=== PATIENT | male | born 1985 | race Caucasian/White ===

== ENCOUNTER 2021-04-30 09:22 | Emergency (ER) | payer MEDICAID, OTHER ==
[~2021-04-30] VITALS: Ht 177.8 cm; Wt 108.9 kg
[2021-04-30] MEDS ORDERED: PENI500T PO (10:09)
[2021-04-30] MEDS ORDERED: HYDR-4209 PO (10:09)
--- NOTE | 2021-04-30 10:30 | NUR ---
Patient discharged to home in stable condition. Written and verbal after care instructions given. Patient verbalizes understanding of instructions. Stressed follow up or return to ER for worsening s/s.
[2021-04-30 11:19] VITALS: BP 145/80
== END 2021-04-30 10:30 | disposition home or self-care (01) ==
LOC: ER 09:22
DX: K02.9 Dental caries, unspecified (principal); K05.10 Chronic gingivitis, plaque induced; E66.9 Obesity, unspecified; Z68.34 Body mass index [BMI] 34.0-34.9, adult
CPT/HCPCS: A4663

== ENCOUNTER 2024-01-14 18:26 | Inpatient (IN) | payer OTHER ==
[~2024-01-14] VITALS: Ht 177.8 cm; Wt 89.6 kg
[~2024-01-14 18:26] MED LIST: HYDR-4209 PO; PENI500T PO
[2024-01-14] MEDS ORDERED: ONDANSETRON 4 MG/2 ML VIAL ONE (18:48)
[2024-01-14] MEDS ORDERED: MAG HYDROX/AL HYDROX/SIMETH 30 ML LIQUID UDC ONE (18:48)
[2024-01-14] MEDS ORDERED: DICYCLOMINE HCL LIQ 10 MG/5 ML UDC ONE ×2 (18:48→18:59)
[2024-01-14] MEDS ORDERED: LIDOCAINE VISCUS 2% 15 ML UDC ONE (18:48)
[2024-01-14] MEDS: MAG HYDROX/AL HYDROX/SIMETH 30 ML LIQUID UDC PO ONE (18:57)
[2024-01-14] MEDS: IV NORMAL SALINE 1000 ML BAG IV ONE (18:57)
[2024-01-14] MEDS: LIDOCAINE VISCUS 2% 15 ML UDC MM ONE (18:57)
[2024-01-14] MEDS: DICYCLOMINE HCL LIQ 10 MG/5 ML UDC PO ONE (18:57)
[2024-01-14] MEDS: ONDANSETRON 4 MG/2 ML VIAL IV ONE (18:57)
[2024-01-14] MEDS ORDERED: HYDROMORPHONE 1 MG/1 ML DISP.SYRIN ONE ×2 (19:17→23:10)
[2024-01-14] MEDS: HYDROMORPHONE 1 MG/1 ML DISP.SYRIN IV ONE ×2 (19:25→23:10)
[2024-01-14 19:50] LABS: BASOPHILS # (AUTO) 0.1 K/UL (0.0-0.2); BASOPHILS % (AUTO) 0.9 % (0.0-2.0); EOSINOPHILS # (AUTO) 0.1 K/uL (0.0-0.7); EOSINOPHILS % (AUTO) 0.6 % (0.0-7.0); HEMATOCRIT 41.7 % (36.7-47.1); HEMOGLOBIN 14.3 g/dL (12.5-16.3); LYMPHOCYTES # (AUTO) 1.4 K/uL (0.8-4.8); LYMPHOCYTES % (AUTO) 8.7 % (20.5-51.5); MEAN CORPUSCULAR HEMOGLOBIN 28.6 uug (23.8-33.4); MEAN CORPUSCULAR HGB CONC 34 g/dL (32.5-36.3); MEAN CORPUSCULAR VOLUME 83.5 fL (73.0-96.2); MONOCYTES # (AUTO) 1.2 K/uL (0.1-1.30); MONOCYTES % (AUTO) 7.8 % (0.0-11.0); NEUTROPHILS # (AUTO) 13.1 K/uL (1.8-8.9); PLATELET COUNT (AUTO) 392 K/uL (152-348); RED CELL DISTRIBUTION WIDTH 13.9 % (12.1-16.2); WHITE BLOOD COUNT (AUTO) 15.9 K/uL (3.6-10.2)
[2024-01-14 19:52] LABS: DIFFERENTIAL COMMENT 1
[2024-01-14] MEDS ORDERED: IOHEXOL 300MG/ML 100 ML INFUS..BTL ONE (19:52)
[2024-01-14] MEDS ORDERED: IV NORMAL SALINE 250 ML IV ONE (19:52)
[2024-01-14] MEDS ORDERED: SWABABLE VALVE TRANSFER SET EA MC ONE (19:52)
[2024-01-14 20:01] LABS: ALANINE AMINOTRANSFERASE 23 U/L (16-63); ALBUMIN 3.5 g/dL (3.4-5.0); ALKALINE PHOSPHATASE 108 U/L (50-136); ASPARTATE AMINOTRANSFERASE 8 U/L (15-37); BILIRUBIN,TOTAL 0.6 mg/dL (0.2-1.0); CALCIUM 8.7 mg/dL (8.5-10.1); CARBON DIOXIDE 27 mmol/L (21-32); CHLORIDE 101 mmol/L (98-107); CREATININE 0.9 mg/dL (0.6-1.3); GLUCOSE 98 mg/dL (74-106); LIPASE 46 U/L (16-77); POTASSIUM 3.5 mmol/L (3.5-5.1); SODIUM SERUM 136 mmol/L (136-145); TOTAL PROTEIN, SERUM 7.8 g/dL (6.4-8.2); UREA NITROGEN, BLOOD 15 mg/dL (7-18)
[2024-01-14 20:05] LABS: BILIRUBIN,DIRECT < 0.1 mg/dL (0.0-0.2)
[2024-01-14] MEDS ORDERED: PIPERACILLIN/TAZOBACTAM/D5W 50 ML IV ONE (21:37)
[2024-01-14] MEDS: PIPERACILLIN SODIUM/TAZOBACTAM 3.375 G in IV DEXTROSE 5% 50 ML IV ONE (21:37)
[2024-01-15] MEDS: HYDROMORPHONE 1 MG/1 ML DISP.SYRIN IV ONE (02:41)
[2024-01-15] MEDS: ONDANSETRON 4 MG/2 ML VIAL IV ONE (02:41)
[2024-01-15] MEDS ORDERED: ONDANSETRON 4 MG/2 ML VIAL ONE (02:45)
[2024-01-15] MEDS ORDERED: HYDROMORPHONE 1 MG/1 ML DISP.SYRIN ONE (02:46)
[2024-01-15 04:35] VITALS: BP 144/94; TEMP 98.6; O2SAT 97
[2024-01-15] MEDS ORDERED: PIPERACILLIN/TAZOBACTAM/D5W 50 ML IV ONE (04:37)
[2024-01-15] MEDS: HYDROMORPHONE 1 MG/1 ML DISP.SYRIN IV PRN (04:40)
[2024-01-15] MEDS: IV D5 1/2 NS 1000 ML 1,000 ML IV PRN (04:48)
[2024-01-15] MEDS: PIPERACILLIN SODIUM/TAZOBACTAM 3.375 G in IV DEXTROSE 5% 50 ML IV ONE (05:56)
[2024-01-15] MEDS ORDERED: PIPERACILLIN SODIUM/TAZOBACTAM 3.375 G in IV DEXTROSE 5% 50 ML IV SCH (06:00)
[2024-01-15] MEDS ORDERED: ONDANSETRON 4 MG/2 ML VIAL IV PRN (08:45)
[2024-01-15] MEDS: PANTOPRAZOLE SODIUM 40 MG VIAL IV SCH (10:03)
[2024-01-15 10:59] VITALS: BP 132/84; TEMP 98; O2SAT 95
[2024-01-15] MEDS: PIPERACILLIN SODIUM/TAZOBACTAM 3.375 G in IV DEXTROSE 5% 100 ML IV SCH (14:18)
[2024-01-15 15:11] VITALS: BP 131/89; TEMP 97.6; O2SAT 99
[2024-01-15] MEDS ORDERED: BUPIVACAINE/EPI PF 0.25% 10 ML VIAL IJ ONE (18:50)
[2024-01-15] MEDS ORDERED: LIDOCAINE HCL 1% 20 ML VIAL ONE (18:50)
[2024-01-15] MEDS ORDERED: MIDAZOLAM HCL 2 MG/2 ML VIAL ONE (18:57)
[2024-01-15] MEDS ORDERED: HYDROMORPHONE 2 MG/1 ML DISP.SYRIN ONE (18:57)
[2024-01-15] MEDS ORDERED: PROPOFOL 200 MG/20 ML BOTTLE ONE (19:00)
[2024-01-15] MEDS ORDERED: ROCURONIUM BROMIDE 50 MG/5 ML VIAL ONE (19:15)
[2024-01-15] MEDS ORDERED: LIDOCAINE 4% TOPICAL 50 ML BOTTLE ONE (19:16)
[2024-01-16] VITALS: BP 144/90; TEMP 97.9; O2SAT 98
[2024-01-16] MEDS: TEMAZEPAM 7.5 MG CAPSULE PO PRN (00:33)
[2024-01-16 06:49] VITALS: BP 165/100; TEMP 98.8; O2SAT 98
[2024-01-16 07:32] LABS: BASOPHILS % (AUTO) 0.1 % (0.0-2.0); HEMATOCRIT 40.9 % (36.7-47.1); HEMOGLOBIN 14.6 g/dL (12.5-16.3); LYMPHOCYTES # (AUTO) 1.2 K/uL (0.8-4.8); LYMPHOCYTES % (AUTO) 9.9 % (20.5-51.5); MEAN CORPUSCULAR HEMOGLOBIN 29.4 uug (23.8-33.4); MEAN CORPUSCULAR HGB CONC 36 g/dL (32.5-36.3); MEAN CORPUSCULAR VOLUME 82.2 fL (73.0-96.2); MONOCYTES # (AUTO) 0.8 K/uL (0.1-1.30); MONOCYTES % (AUTO) 6.4 % (0.0-11.0); NEUTROPHILS # (AUTO) 10.1 K/uL (1.8-8.9); NEUTROPHILS % (AUTO) 83.6 % (38.5-71.5); PLATELET COUNT (AUTO) 423 K/uL (152-348); RED BLOOD CELL COUNT(AUTO) 4.98 MIL/uL (4.06-5.63); RED CELL DISTRIBUTION WIDTH 13.6 % (12.1-16.2); WHITE BLOOD COUNT (AUTO) 12.1 K/uL (3.6-10.2)
[2024-01-16 07:39] LABS: DIFFERENTIAL COMMENT 1
[2024-01-16 07:51] LABS: CALCIUM 8.7 mg/dL (8.5-10.1); CREATININE 0.9 mg/dL (0.6-1.3); POTASSIUM 3.9 mmol/L (3.5-5.1)
[2024-01-16] MEDS: AMLODIPINE 5 MG TABLET PO SCH (08:02)
[2024-01-16 12:01] VITALS: BP 141/85; TEMP 98.4; O2SAT 96
[2024-01-16 16:00] VITALS: BP 132/88; TEMP 98.4; O2SAT 98
[2024-01-16 20:00] VITALS: BP 155/88; TEMP 97.8; O2SAT 99
[2024-01-17 06:06] VITALS: BP 155/93; TEMP 98.2; O2SAT 98
[2024-01-17 07:01] LABS: BASOPHILS # (AUTO) 0.2 K/UL (0.0-0.2); BASOPHILS % (AUTO) 2.7 % (0.0-2.0); EOSINOPHILS # (AUTO) 0.3 K/uL (0.0-0.7); EOSINOPHILS % (AUTO) 3.8 % (0.0-7.0); HEMATOCRIT 44.5 % (36.7-47.1); HEMOGLOBIN 15.3 g/dL (12.5-16.3); LYMPHOCYTES # (AUTO) 0.8 K/uL (0.8-4.8); LYMPHOCYTES % (AUTO) 9.5 % (20.5-51.5); MEAN CORPUSCULAR HEMOGLOBIN 28.6 uug (23.8-33.4); MEAN CORPUSCULAR HGB CONC 34 g/dL (32.5-36.3); MEAN CORPUSCULAR VOLUME 83.3 fL (73.0-96.2); MONOCYTES # (AUTO) 0.7 K/uL (0.1-1.30); NEUTROPHILS # (AUTO) 6.8 K/uL (1.8-8.9); PLATELET COUNT (AUTO) 445 K/uL (152-348); RED BLOOD CELL COUNT(AUTO) 5.34 MIL/uL (4.06-5.63); RED CELL DISTRIBUTION WIDTH 13.9 % (12.1-16.2); WHITE BLOOD COUNT (AUTO) 8.9 K/uL (3.6-10.2)
[2024-01-17 07:11] LABS: DIFFERENTIAL COMMENT 1
[2024-01-17 07:34] LABS: CALCIUM 8.6 mg/dL (8.5-10.1); CREATININE 0.8 mg/dL (0.6-1.3); MAGNESIUM 2.1 mg/dL (1.8-2.4); PHOSPHOROUS 3.1 mg/dL (2.5-4.9); POTASSIUM 3.5 mmol/L (3.5-5.1)
[2024-01-17 11:37] VITALS: BP 161/106; TEMP 98.1; O2SAT 96
[2024-01-17 16:14] VITALS: BP 146/91; TEMP 98.4; O2SAT 99
[2024-01-17 20:13] VITALS: BP 131/84; TEMP 98.1; O2SAT 96
[2024-01-18 05:20] VITALS: BP 125/86; TEMP 98.2; O2SAT 95
[2024-01-18] MEDS: PANTOPRAZOLE SODIUM 40 MG TABLET.DR PO SCH (06:22)
[2024-01-18 07:30] LABS: BASOPHILS # (AUTO) 0.1 K/UL (0.0-0.2); BASOPHILS % (AUTO) 0.8 % (0.0-2.0); EOSINOPHILS # (AUTO) 0.3 K/uL (0.0-0.7); EOSINOPHILS % (AUTO) 3.5 % (0.0-7.0); HEMATOCRIT 41.9 % (36.7-47.1); HEMOGLOBIN 14.8 g/dL (12.5-16.3); LYMPHOCYTES # (AUTO) 2.2 K/uL (0.8-4.8); MEAN CORPUSCULAR HEMOGLOBIN 29.1 uug (23.8-33.4); MEAN CORPUSCULAR HGB CONC 35 g/dL (32.5-36.3); MEAN CORPUSCULAR VOLUME 82.5 fL (73.0-96.2); MONOCYTES # (AUTO) 0.8 K/uL (0.1-1.30); MONOCYTES % (AUTO) 9.1 % (0.0-11.0); NEUTROPHILS # (AUTO) 5.1 K/uL (1.8-8.9); NEUTROPHILS % (AUTO) 60.6 % (38.5-71.5); PLATELET COUNT (AUTO) 469 K/uL (152-348); RED BLOOD CELL COUNT(AUTO) 5.08 MIL/uL (4.06-5.63); RED CELL DISTRIBUTION WIDTH 13.5 % (12.1-16.2); WHITE BLOOD COUNT (AUTO) 8.4 K/uL (3.6-10.2)
[2024-01-18 07:35] LABS: DIFFERENTIAL COMMENT 1
[2024-01-18 07:52] LABS: CREATININE 0.8 mg/dL (0.6-1.3); PHOSPHOROUS 3.8 mg/dL (2.5-4.9); POTASSIUM 3.5 mmol/L (3.5-5.1)
[2024-01-18 07:57] LABS: CALCIUM 8.5 mg/dL (8.5-10.1)
[2024-01-18 12:00] VITALS: BP 143/92; TEMP 98.1; O2SAT 96
[2024-01-18] MEDS: PSYLLIUM SEED PACKET PO SCH (13:49)
[2024-01-18] MEDS ORDERED: HYDR-3972 PO (14:25)
[2024-01-18 16:31] VITALS: BP 134/89; TEMP 97.9; O2SAT 98
[2024-01-18 21:20] VITALS: BP 135/88; TEMP 98.6; O2SAT 100
[2024-01-19] MEDS: HYDROCODONE/APAP 10-325 MG TABLET PO PRN (04:33)
[2024-01-19 05:07] VITALS: BP 127/89; TEMP 98.6; O2SAT 100
[2024-01-19 11:10] VITALS: BP 128/86; TEMP 97.7; O2SAT 99
[2024-01-19] MEDS ORDERED: AMOX-430 PO (13:24)
[2024-01-19] MEDS ORDERED: ONDA4TAB11 PO (13:24)
== END 2024-01-19 16:00 | disposition home or self-care (01) | DRG 223 ==
LOC: ER 18:27 → MEDSURG3 01-15 02:20
PROVIDERS: ADMIT Nurse Practitioner Family; ATTEND Nurse Practitioner Family
PROC: 0DQH4ZZ Repair Cecum, Percutaneous Endoscopic Approach (ICD-10-PCS; principal; 2024-01-15)
PROC: 0DTJ4ZZ Resection of Appendix, Percutaneous Endoscopic Approach (ICD-10-PCS; principal; 2024-01-15)
DX: K35.32 Acute appendicitis with perforation, localized peritonitis, and gangrene, without abscess (principal); A09 Infectious gastroenteritis and colitis, unspecified; D75.839 Thrombocytosis, unspecified; K21.9 Gastro-esophageal reflux disease without esophagitis; K50.90 Crohn's disease, unspecified, without complications; E66.9 Obesity, unspecified; Z68.28 Body mass index [BMI] 28.0-28.9, adult; D72.829 Elevated white blood cell count, unspecified
CPT/HCPCS: 36415; 83690; 83735; 84100; 85025; 93005; A4606; A4649; A4663; C9113; G0378; J0330; J0690; J1100; J1170; J2250; J2405; J2543; J3490; J7040; Q9967